=== PATIENT | female | born 1960 | race Caucasian/White ===

== ENCOUNTER 2017-01-05 21:21 | Emergency (ER) | payer OTHER ==
[2017-01-05 21:17] LABS: INFLUENZA A NEG (NEG); INFLUENZA B NEG (NEG)
[~2017-01-05 21:21] MED LIST: ACULAR10 ML OU; ERYTHROMYC3.5 GM OPT OU; NO MEDICATIONS; POLYTRIM EYE DR10 ML OU; VOLTAREN75 MG PO; [UNRECOGNIZED DRUG - REMARK]
== END 2017-01-05 21:49 | disposition home or self-care (01) ==
LOC: SED 21:21
PROVIDERS: Physician Assistant
DX: B34.9 Viral infection, unspecified (principal); J06.9 Acute upper respiratory infection, unspecified; H60.92 Unspecified otitis externa, left ear; Z88.5 Allergy status to narcotic agent; Z91.040 Latex allergy status
CPT/HCPCS: 87804; 99282; 99283